=== PATIENT | female | born 1985 | race Caucasian/White ===

== ENCOUNTER 2016-08-10 11:31 | Emergency (ER) | payer OTHER ==
[2016-08-10] MEDS ORDERED: NS 0.9% 1000 ML* 1,000 ML IV ONE (12:45)
[2016-08-10 13:41] VITALS: BP 115/66
--- NOTE | 2016-08-10 14:15 | ED ---
GI/ HPI - HPI Summary HPI Summary: 31F presents at 18 weeks with n/v/d for a day. No one else with similar symptoms. She states she has generalized abdominal pain. She denies any dysuria, hematuria, vaginal bleeding or cramping. She states that nausea medications do not work for her. She states that she had two episodes of vomiting and one normal bowel movement and two episodes of loose stools. She denies any blood in the stool. She did not eat anything different. - History of Current Complaint Chief Complaint: EDGeneral Time Seen by Provider: 08/10/16 13:59 Stated Complaint: 18 WEEKS PREG VOMITING Pain Intensity: 0 - Allergy/Home Medications Allergies/Adverse Reactions: Allergies Allergy/AdvReac Type Severity Reaction Status Date / Time No Known Allergies Allergy Verified 05/06/15 12:56 PMH/Surg Hx/FS Hx/Imm Hx Cardiovascular History: Denies: Hx Hypertension Respiratory History: Denies: Hx Asthma GI History: Reports: Hx Gastroesophageal Reflux Disease - WELL CONTROLLED Sensory History: Reports: Hx Contacts or Glasses - GLASSES Denies: Hx Hearing Aid Opthamlomology History: Reports: Hx Contacts or Glasses - GLASSES Infectious Disease History: No Infectious Disease History: Denies: Traveled Outside the [place] in Last 30 Days - Family History Known Family History: Negative: Cardiac Disease - Social History Alcohol Use: None Substance Use Type: Reports: None Smoking Status (MU): Never Smoked Tobacco Review of Systems Negative: Fever Negative: Chest Pain Negative: Shortness Of Breath Positive: Abdominal Pain - generalized, Vomiting, Diarrhea, Nausea All Other Systems Reviewed And Are Negative: Yes Physical Exam Triage Information Reviewed: Yes Vital Signs On Initial Exam: Initial Vitals Temp Pulse Resp BP Pulse Ox 97.7 F 73 20 105/68 100 08/10/16 11:41 08/10/16 11:41 08/10/16 11:41 08/10/16 11:41 08/10/16 11:41 Vital Signs Reviewed: Yes Appearance: Positive: Well-Appearing Skin: Positive: Warm, Dry Head/Face: Positive: Normal Head/Face Inspection Eyes: Positive: Normal, Conjunctiva Clear ENT: Positive: Normal ENT inspection, Pharynx normal, TMs normal Respiratory/Lung Sounds: Positive: Clear to Auscultation, Breath Sounds Present Cardiovascular: Positive: Normal, RRR Abdomen Description: Positive: Soft, Other: - mild diffuse tenderness, uterus felt at umblicius Bowel Sounds: Positive: Present Diagnostics - Vital Signs Vital Signs Temp Pulse Resp BP Pulse Ox 08/10/16 13:39 98.2 F 89 20 115/66 100 08/10/16 12:37 98.1 F 89 20 113/68 100 08/10/16 11:41 97.7 F 73 20 105/68 100 - Laboratory Result Diagrams: 08/10/16 15:09 08/10/16 15:09 Lab Statement: Any lab studies that have been ordered have been reviewed, and results considered in the medical decision making process. Re-Evaluation - Re-Evaluation First Eval Re-Evaluation Time: 16:40 Change: Improved Comment: feeling better and would like to be discharged. does not want any nausea medications as says that does not work for her GIGU Course/Dx - Course Course Of Treatment: 31 F presents with n/v/d for a day. has generalized abdominal pain, gave fluids and felt better but is declining any nausea medication as states does not work, generalized abdominal pain on exam that is mild, labs wbc elevated, ob did heart rate and was normal according to patient, patient feels comfortable going home, told if symptoms localized to come back and if unable to keep any fluids down, patient did not want script for nausea medication to go home, patient understands and agrees with plan - Diagnoses Differential Diagnoses - Female: Gastroenteritis (Viral), Gastroenteritis ( Bacterial), Urinary Tract Infection Provider Diagnoses: Nausea vomiting and diarrhea Discharge - Discharge Plan Condition: Good Disposition: HOME Patient Education Materials: Acute Nausea and Vomiting (ED) Referrals: Nida Ochoa NP [Primary Care Provider] - Additional Instructions: Follow up with obgyn in 3 days Can take Tylenol for pain every 6 hours Drink small amounts of fluid as tolerated When able to eat follow BRAT diet: Bananas, rice, applesauce, toast Return to ED if develop severe abdominal pain, unable to keep any liquids down, or any new or worsening symptoms
[2016-08-10 15:30] LABS: Hematocrit 37 % (35-47); Hemoglobin 12.6 g/dl (12.0-16.0); Mean Corpuscular HGB Conc 35 g/dl (31-36); Mean Corpuscular Hemoglobin 33 pg (27-31); Mean Corpuscular Volume 95 fL (80-97); Mean Platelet Volume 10 um3 (7.4-10.4); Red Blood Count 3.83 10^6/ul (4.0-5.4); Red Cell Distribution Width 14 % (10.5-15); White Blood Count 14.1 10^3/ul (3.5-10.8)
[2016-08-10 16:01] LABS: ALT 16 U/L (7-52); AST 23 U/L (13-39); Albumin 3.8 g/dL (3.2-5.2); Alkaline Phosphatase 67 U/L (34-104); Anion Gap 10 mmol/L (2-11); BUN/Creatinine Ratio 20.8 (8-20); Blood Urea Nitrogen 11 mg/dL (6-24); CO2 Carbon Dioxide 23 mmol/L (22-32); Calcium 9.1 mg/dL (8.6-10.3); Chloride 101 mmol/L (101-111); EGFR African American 175.4 (>60); EGFR Non-African American 136.4 (>60); Globulin 3.4 g/dL (2-4); Glucose 81 mg/dL (70-100); Lipase < 10 U/L (11.0-82.0); Potassium 3.7 mmol/L (3.5-5.0); Sodium 134 mmol/L (133-145); Total Protein 7.2 g/dL (6.4-8.9)
== END 2016-08-10 17:32 | disposition home or self-care (01) ==
LOC: ED 11:31
DX: O21.0 Mild hyperemesis gravidarum (principal); O26.892 Other specified pregnancy related conditions, second trimester; Z3A.18 18 weeks gestation of pregnancy; R19.7 Diarrhea, unspecified; K21.9 Gastro-esophageal reflux disease without esophagitis
CPT/HCPCS: 36415; 80053; 83690; 84702; 85025; 99282

== ENCOUNTER 2017-01-03 23:47 | Inpatient (IN) | payer OTHER ==
[2017-01-04 00:32] LABS: ROM Internal QC QC Line Present
[2017-01-04] MEDS ORDERED: Nalbuphine* 20 MG/ML 1 ML VIAL IV PRN (01:30)
[2017-01-04] MEDS ORDERED: Promethazine INJ(RESTRICTED)* 25 MG/ML 1 ML VIAL IV PRN (01:30)
[2017-01-04 01:56] LABS: Comments Flag Yes; Hematocrit 35 % (35-47); Hemoglobin 11.6 g/dl (12.0-16.0); Mean Corpuscular HGB Conc 33 g/dl (31-36); Mean Corpuscular Hemoglobin 33 pg (27-31); Mean Corpuscular Volume 99 fL (80-97); Mean Platelet Volume 13 um3 (7.4-10.4); Red Blood Count 3.56 10^6/ul (4.0-5.4); Red Cell Distribution Width 14 % (10.5-15); White Blood Count 9.7 10^3/ul (3.5-10.8)
[2017-01-04 01:57] LABS: Add Diff/Slide Review? Slide Review Added
[2017-01-04] MEDS ORDERED: Promethazine INJ(RESTRICTED)* 25 MG/ML 1 ML VIAL ONE (04:14)
[2017-01-04] MEDS ORDERED: Nalbuphine* 20 MG/ML 1 ML VIAL ONE (04:14)
[2017-01-04] MEDS ORDERED: OBEPIDURAL* 250 ML ONE (08:01)
[2017-01-04] MEDS ORDERED: Sodium Citrate/Citric Acid* 15 ML UDC PO PRN (09:05)
[2017-01-04] MEDS ORDERED: Famotidine TAB* 20 MG PO PRN (09:05)
[2017-01-04] MEDS ORDERED: Phenylephrine IV* 40 MCG/ML 10 ML SYRINGE IV PUSH PRN ×2 (09:05)
[2017-01-04] MEDS ORDERED: Oxytocin in LR* 20 UNITS/1,000 ML BAG IVPB ONE (09:49)
[2017-01-04] MEDS ORDERED: OBEPIDURAL* 250 ML EPIDURAL SCH (10:00)
[2017-01-04] MEDS ORDERED: Oxytocin in LR* 20 UNITS/1,000 ML BAG IVPB SCH ×2 (10:00→16:00)
[2017-01-04] MEDS ORDERED: Glycerin ADULT SUPP PR PRN (15:06)
[2017-01-04] MEDS ORDERED: Acetaminophen TAB* 325 MG PO PRN (15:06)
[2017-01-04] MEDS ORDERED: RHO D Immune Globulin (HUMAN)* 300 MCG = 1,500 I.U. INJ IM ONE (15:06)
[2017-01-04] MEDS ORDERED: Witch Hazel PAD* JAR TOPICAL PRN (15:06)
[2017-01-04] MEDS: Ibuprofen TAB* 600 MG PO PRN (15:57)
[2017-01-04] MEDS: Dibucaine 1% 28.35 GM TUBE PR PRN (19:46)
[2017-01-04] MEDS: Docusate CAP* 100 MG PO SCH (19:46)
[2017-01-04] MEDS: Simethicone CHEW TAB* 80 MG PO SCH (21:21)
[2017-01-05] MEDS: Ibuprofen TAB* 600 MG PO PRN ×2 (00:03→15:46)
[2017-01-05 06:31] LABS: Hematocrit 31 % (35-47); Hemoglobin 10.6 g/dl (12.0-16.0); Mean Corpuscular HGB Conc 34 g/dl (31-36); Mean Corpuscular Hemoglobin 33 pg (27-31); Mean Corpuscular Volume 98 fL (80-97); Mean Platelet Volume 13 um3 (7.4-10.4); Red Cell Distribution Width 15 % (10.5-15); White Blood Count 13.4 10^3/ul (3.5-10.8)
[2017-01-05 06:34] LABS: Add Diff/Slide Review? Slide Review Added; Comments Flag Yes
[2017-01-05] MEDS: Omeprazole CAP* 20 MG PO SCH ×2 (10:46→20:06)
[2017-01-05] MEDS: Docusate CAP* 100 MG PO SCH ×3 (10:46→20:06)
[2017-01-05] MEDS: Ferrous Gluconate TAB* 324 MG TAB PO SCH ×2 (10:46→20:05)
[2017-01-05] MEDS: Dibucaine 1% 28.35 GM TUBE PR PRN (20:06)
[2017-01-06] MEDS: Ibuprofen TAB* 600 MG PO PRN (04:01)
[2017-01-06 08:19] VITALS: BP 138/89
[2017-01-06] MEDS: Omeprazole CAP* 20 MG PO SCH (08:59)
[2017-01-06] MEDS: Docusate CAP* 100 MG PO SCH (08:59)
[2017-01-06] MEDS: Ferrous Gluconate TAB* 324 MG TAB PO SCH (08:59)
--- NOTE | 2017-01-06 10:13 | PTEDU ---
Patient Name: LUIS ZAYAS LUIS ZAYAS selected video: BBOB: Nurturing Your Gorgeous \T\Growing Baby by to deion keen on 01/06/2017 at 10:12:54 [id number]
--- NOTE | 2017-01-06 10:42 | PTEDU ---
Patient Name: LUIS ZAYAS LUIS ZAYAS selected video: BBOB: Bonding Through Massage to view on 01/06/2017 at 10:41:5 9 [id number]
== END 2017-01-06 12:30 | disposition home or self-care (01) | DRG 775 ==
LOC: MCHOBOUT 23:47 → MCHOB 01-04 00:44
PROVIDERS: ADMIT Obstetrics & Gynecology; ATTEND Obstetrics & Gynecology
PROC: 10907ZC Drainage of Amniotic Fluid, Therapeutic from Products of Conception, Via Natural or Artificial Opening (ICD-10-PCS; principal; 2017-01-04)
PROC: 10E0XZZ Delivery of Products of Conception, External Approach (ICD-10-PCS; 2017-01-04)
PROC: 0HQ9XZZ Repair Perineum Skin, External Approach (ICD-10-PCS; 2017-01-04)
PROC: 4A1HXCZ Monitoring of Products of Conception, Cardiac Rate, External Approach (ICD-10-PCS; 2017-01-04)
DX: O42.02 Full-term premature rupture of membranes, onset of labor within 24 hours of rupture (principal); R03.0 Elevated blood-pressure reading, without diagnosis of hypertension; O75.89 Other specified complications of labor and delivery; O69.81X0 Labor and delivery complicated by cord around neck, without compression, not applicable or unspecified; Z3A.39 39 weeks gestation of pregnancy; Z37.0 Single live birth; O70.0 First degree perineal laceration during delivery
CPT/HCPCS: 36415; 84112; 85025; 85461; 86850; 86870; 86880; 86900; 86901; A9270-GY; J2300; J2550; J2790